=== PATIENT | male | born 1980 | race Caucasian/White ===

== ENCOUNTER 2016-10-08 14:58 | Emergency (ER) | payer BC ==
[2016-10-08] MEDS ORDERED: ACETAMINOPHEN TAB 500 MG TAB PO STA (15:30)
[2016-10-08] MEDS ORDERED: IBUPROFEN 600 MG TAB PO STA (15:30)
[2016-10-08] MEDS ORDERED: methylPREDNISolone SOD SUCCI 125 MG/2 ML VIAL IV STA (15:46)
--- NOTE | 2016-10-08 15:48 | ED ---
ENT HPI - General Chief complaint: ENT Stated complaint: Sore Throat Time Seen by Provider: 10/08/16 15:17 Source: patient, RN notes reviewed, old records reviewed Mode of arrival: ambulatory Limitations: no limitations - History of Present Illness Initial comments: 36-year-old male chief complaint of a sore throat for the past 5 days. Patient reports he's had fevers. He denies any recent Motrin Tylenol. He went to an urgent care who then told to come here because they are concerned of the amount of swelling of his tonsils. He reports he's had a muffled voice. He denies any difficulty breathing, he states it is difficult to swallow hard foods. He denies any history of sick contacts is aware of. Patient denies any recent fever, chills, shortness of breath, chest pain, back pain, abdominal pain, nausea vomiting, numbness or tingling, dysuria or hematuria, constipation or diarrhea, headaches or visual changes, or any other current symptoms - Related Data Previous Rx's Medication Instructions Recorded Amoxic-Pot Clav 875-125Mg 1 tab PO Q12HR #20 tablet 10/08/16 [Augmentin 875-125] Ibuprofen [Motrin] 600 mg PO Q8HR PRN #30 tab 10/08/16 methylPREDNISolone Dose Pack 4 mg PO DIRECTED #21 package 10/08/16 [Medrol Dose Pack] Allergies Allergy/AdvReac Type Severity Reaction Status Date / Time No Known Allergies Allergy Verified 10/08/16 17:04 Review of Systems ROS Statement: Those systems with pertinent positive or pertinent negative responses have been documented in the HPI. ROS Other: All systems not noted in ROS Statement are negative. Past Medical History Past Medical History: No Reported History History of Any Multi-Drug Resistant Organisms: None Reported Past Surgical History: No Surgical Hx Reported Past Psychological History: No Psychological Hx Reported Smoking Status: Current every day smoker Past Alcohol Use History: None Reported Past Drug Use History: None Reported General Exam - General Exam Comments Initial Comments: 36-year-old male. Patient is sitting comfortably. Does not appear to be in any acute distress. Limitations: no limitations General appearance: alert, in no apparent distress Head exam: Present: atraumatic, normocephalic, normal inspection Eye exam: Present: normal appearance, PERRL, EOMI. Absent: scleral icterus, conjunctival injection, periorbital swelling ENT exam: Present: normal exam, mucous membranes moist. Absent: normal oropharynx (Patient has severe enlargement of bilateral tonsils. Both tonsils are touching the uvula. Patient has a muffled voice.) Neck exam: Present: normal inspection, lymphadenopathy (He has bilateral tender cervical lymphadenopathy.). Absent: tenderness, meningismus Respiratory exam: Present: normal lung sounds bilaterally. Absent: respiratory distress, wheezes, rales, rhonchi, stridor Cardiovascular Exam: Present: regular rate, normal rhythm, normal heart sounds. Absent: systolic murmur, diastolic murmur, rubs, gallop, clicks GI/Abdominal exam: Present: soft, normal bowel sounds. Absent: distended, tenderness, guarding, rebound, rigid Extremities exam: Present: normal inspection, full ROM, normal capillary refill. Absent: tenderness, pedal edema, joint swelling, calf tenderness Back exam: Present: normal inspection Neurological exam: Present: alert, oriented X3, CN II-XII intact Psychiatric exam: Present: normal affect, normal mood Skin exam: Present: warm, dry, intact, normal color. Absent: rash Course Vital Signs 10/08/16 10/08/16 15:18 15:52 Temperature 101 F H 98.9 F Pulse Rate 122 H 122 H Respiratory 20 18 Rate Blood Pressure 138/92 131/89 O2 Sat by Pulse 96 95 Oximetry Medical Decision Making - Medical Decision Making 36-year-old male chief complaint of a sore throat for the past 5 days. Patient reports he's had fevers. He denies any recent Motrin Tylenol. He went to an urgent care who then told to come here because they are concerned of the amount of swelling of his tonsils. He reports he's had a muffled voice. He denies any difficulty breathing, he states it is difficult to swallow hard foods. Patient does have significant swelling over bilateral tonsils. He does have a significant a muffled voice. He has a fever 101 and tachycardia 120 coming to the emergency department. Patient was given Motrin and Tylenol. Given the extensive swelling and both of this tonsils are touching uvula further workup was obtained including IV fluids and lab work. Patient does have an elevated white count of 16.2. His rapid strep and heterophile are both negative. Patient received a CAT scan of the soft tissue of the neck with contrast. There is concern for a 2 cm abscess. There was significant oropharyngeal and narrow nasopharyngeal narrowing of the airway due to swelling. He did receive IV Solu-Medrol. Patient was reevaluated states he is feeling much better after some fluids and the medication. Patient was informed of the CAT scan results. Initially patient was apprehensive her staying for further treatment and just wanted to go home with antibiotic. Discussed with on-call ENT specialist Dr. Leger he will evaluate the patient. Dr. Leger date, and he drained the peritonsillar abscess. Approximately 4 mL of pus was came out of the tonsil. Patient reports that he is feeling much better at this time. Discussed the case with Dr. Leger. We will discharge the patient with a prescription for Augmentin and a Medrol Dosepak. Also given a prescription for Motrin for fever. Patient understands treatment plan will comply. Return parameters were discussed. - Lab Data Result diagrams: 10/08/16 16:07 10/08/16 16:07 Lab Results 10/08/16 10/08/16 10/08/16 Range/Units 16:07 16:07 16:07 WBC 16.2 H (3.8-10.6) k/uL RBC 4.85 (4.30-5.90) m/uL Hgb 13.8 (13.0-17.5) gm/dL Hct 40.5 (39.0-53.0) % MCV 83.4 (80.0-100.0) fL MCH 28.4 (25.0-35.0) pg MCHC 34.0 (31.0-37.0) g/dL RDW 13.7 (11.5-15.5) % Plt Count 285 (150-450) k/uL Neutrophils % 77 % Lymphocytes % 16 % Monocytes % 5 % Eosinophils % 1 % Basophils % 0 % Neutrophils # 12.4 H (1.3-7.7) k/uL Lymphocytes # 2.5 (1.0-4.8) k/uL Monocytes # 0.8 (0-1.0) k/uL Eosinophils # 0.2 (0-0.7) k/uL Basophils # 0.1 (0-0.2) k/uL Sodium 138 (137-145) mmol/L Potassium 3.9 (3.5-5.1) mmol/L Chloride 99 (98-107) mmol/L Carbon Dioxide 21 L (22-30) mmol/L Anion Gap 18 mmol/L BUN 17 (9-20) mg/dL Creatinine 0.76 (0.66-1.25) mg/dL Est GFR (MDRD) Af Amer >60 (>60 ml/min/1.73 sqM) Est GFR (MDRD) Non-Af >60 (>60 ml/min/1.73 sqM) Glucose 91 (74-99) mg/dL Plasma Lactic Acid Mikael (0.7-2.0) mmol/L Calcium 9.7 (8.4-10.2) mg/dL Total Bilirubin 1.0 (0.2-1.3) mg/dL AST 19 (17-59) U/L ALT 44 (21-72) U/L Alkaline Phosphatase 101 (38-126) U/L Total Protein 7.8 (6.3-8.2) g/dL Albumin 4.3 (3.5-5.0) g/dL Heterophile Antibody (Negative) Group A Strep Rapid Negative (Negative) 10/08/16 10/08/16 Range/Units 16:07 16:07 WBC (3.8-10.6) k/uL RBC (4.30-5.90) m/uL Hgb (13.0-17.5) gm/dL Hct (39.0-53.0) % MCV (80.0-100.0) fL MCH (25.0-35.0) pg MCHC (31.0-37.0) g/dL RDW (11.5-15.5) % Plt Count (150-450) k/uL Neutrophils % % Lymphocytes % % Monocytes % % Eosinophils % % Basophils % % Neutrophils # (1.3-7.7) k/uL Lymphocytes # (1.0-4.8) k/uL Monocytes # (0-1.0) k/uL Eosinophils # (0-0.7) k/uL Basophils # (0-0.2) k/uL Sodium (137-145) mmol/L Potassium (3.5-5.1) mmol/L Chloride (98-107) mmol/L Carbon Dioxide (22-30) mmol/L Anion Gap mmol/L BUN (9-20) mg/dL Creatinine (0.66-1.25) mg/dL Est GFR (MDRD) Af Amer (>60 ml/min/1.73 sqM) Est GFR (MDRD) Non-Af (>60 ml/min/1.73 sqM) Glucose (74-99) mg/dL Plasma Lactic Acid Mikael 1.2 (0.7-2.0) mmol/L Calcium (8.4-10.2) mg/dL Total Bilirubin (0.2-1.3) mg/dL AST (17-59) U/L ALT (21-72) U/L Alkaline Phosphatase (38-126) U/L Total Protein (6.3-8.2) g/dL Albumin (3.5-5.0) g/dL Heterophile Antibody Negative (Negative) Group A Strep Rapid (Negative) - Radiology Data Radiology results: report reviewed Hypertrophy Dowd ring with pencillike narrowing of both nasopharyngeal and oropharyngeal areas. Correlate with tonsillitis with findings highly suggest a 2.1 cm right peritonsillar abscess. also has cervical lymphadenopathy measuring up to 1.9 cm it. Most likely reactive. Disposition Clinical Impression: Peritonsillar abscess Disposition: HOME SELF-CARE Condition: Good Instructions: Peritonsillar Abscess (ED) Additional Instructions: Patient to take all medication. Patient is to follow up with Dr. Melendez if any further complication. Return to the emergency department if any alarming signs of symptoms occur. Prescriptions: Amoxic-Pot Clav 875-125Mg [Augmentin 875-125] 1 tab PO Q12HR #20 tablet Ibuprofen [Motrin] 600 mg PO Q8HR PRN #30 tab PRN Reason: Pain methylPREDNISolone Dose Pack [Medrol Dose Pack] 4 mg PO DIRECTED #21 package Referrals: Mikel Pugh MD [Primary Care Provider] - 1-2 days Maciel Alexander DO [Doctor of Osteopathic Medicine] - 1-2 days Time of Disposition: 18:25
[2016-10-08] MEDS ORDERED: RX INFO: IV CONTRAST WAS GIVEN 1 EACH MISC MISCELLANE PRN (15:49)
[2016-10-08 15:53] VITALS: RESP 18; TEMP 98.9
[2016-10-08 16:21] LABS: Basophils # (A) 0.1 k/uL (0-0.2); Basophils % (A) 0 %; CH 28.6; CHCM 34.4; Eosinophils # (A) 0.2 k/uL (0-0.7); Eosinophils % (A) 1 %; HCT 40.5 % (39.0-53.0); HDW 2.45; HGB 13.8 gm/dL (13.0-17.5); Luc # (Auto) 0.29; Luc % (Auto) 2; Lymphocytes # (A) 2.5 k/uL (1.0-4.8); Lymphocytes % (A) 16 %; MCH 28.4 pg (25.0-35.0); MCV 83.4 fL (80.0-100.0); Mean Platelet Volume 7.7; Monocytes # (A) 0.8 k/uL (0-1.0); Monocytes % (A) 5 %; Neutrophils # (A) 12.4 k/uL (1.3-7.7); Neutrophils % (A) 77 %; RBC 4.85 m/uL (4.30-5.90); RDW 13.7 % (11.5-15.5); WBC 16.2 k/uL (3.8-10.6); WBC (Perox) 14.84
[2016-10-08 16:33] LABS: ALT 44 U/L (21-72); AST 19 U/L (17-59); Alkaline Phosphatase 101 U/L (38-126); Anion Gap 18 mmol/L; Blood Urea Nitrogen 17 mg/dL (9-20); Calcium 9.7 mg/dL (8.4-10.2); Carbon Dioxide 21 mmol/L (22-30); Chloride 99 mmol/L (98-107); Glucose 91 mg/dL (74-99); Non-African American GFR(MDRD) >60 (>60 ml/min/1.73 sqM); Potassium 3.9 mmol/L (3.5-5.1); Sodium 138 mmol/L (137-145); Total Protein 7.8 g/dL (6.3-8.2)
[2016-10-08] MEDS ORDERED: SODIUM CHLORIDE 0.9% 1,000 ML IV ONE (16:36)
[2016-10-08] MEDS ORDERED: SODIUM CHLORIDE 0.9% 1,000 ML IV SCH (16:45)
--- NOTE | 2016-10-08 17:05 | CT ---
EXAMINATION TYPE: CT soft tissue neck w con DATE OF EXAM: 10/08/2016 COMPARISON: NONE HISTORY: 36-year-old male with swollen and sore throat TECHNIQUE: Contiguous axial scanning of the performed with IV Contrast, patient injected with 100 mL of Omnipaque 300. Delayed images through the kidneys were obtained. Coronal/sagittal reconstructions performed. CT DLP: 525.4 mGycm Automated exposure control for dose reduction was used. FINDINGS: Visualized intracranial structures, orbits and globes, and mastoid air cells appear within normal florez its. Mild mucosal thickening right maxillary sinus and ethmoid air cells. Polyp or mucosal retention cyst within the left sphenoid sinus. Hypertrophy of the adenoid tonsils causing pencillike narrowing of the nasopharyngeal airway. Marked bilateral palatine tonsillar hypertrophy with evidence of a 1.1 x 2.1 x 1.8 cm right-sided per itonsillar fluid collection. This results in pencillike narrowing of the oropharyngeal airway as well as the level of the palatine tonsils. Slight thickening extends into the right retropharyngeal soft tissues without discrete retropharyngeal fluid collection. Lingual tonsillar hypertrophy is also note d. Epiglottis within normal limits. The glottic and subglottic airway as well as the tracheal column and visualized upper lungs are clear. The thyroid, submandibular, and parotid glands appear satisfactory. Patient to cervical lymphadenopathy is present on both sides measuring up to 1.9 cm. Additional 7 mm space lymphadenopathy on the right measuring up to 1.2 cm. No osseous destructive process. IMPRESSION: 1. HYPERTROPHIED WALDEYER'S RING WITH PENCILLIKE NARROWING OF BOTH THE NASOPHARYNGEAL AND OROPHARYNGE AL AIRWAYS. 2. CORRELATE FOR TONSILLITIS WITH FINDINGS HIGHLY SUGGESTIVE OF A 2.1 CM RIGHT PARATONSILLAR ABSCESS. 3. UPPER CERVICAL LYMPHADENOPATHY MEASURING UP TO 1.9 CM IS LIKELY REACTIVE.
[2016-10-08] MEDS ORDERED: AMPICILLIN-SULBACTAM 3 GM in SODIUM CHLORIDE 0.9% 100 ML IVPB STA (17:27)
[2016-10-08] MEDS ORDERED: BENZOCAINE SPRAY 100 APPLIC/CAN MUCOUS MEM STA (17:45)
--- NOTE | 2016-10-08 18:28 | P.OP ---
Date of Procedure: 10/08/16 Preoperative Diagnosis: Right peritonsillar abscess Postoperative Diagnosis: same Procedure(s) Performed: Incision and drainage of right peritonsillar abscess Implants: Anesthesia: local Surgeon: Maciel Alexander Estimated Blood Loss (ml): 5 Pathology: none sent Condition: stable Disposition: PACU Indications for Procedure: This patient developed a sore throat last Tuesday or with associated fevers and chills. CAT scan evaluation shows a right peritonsillar abscess. I was called by the emergency room for drainage of this abscess. Patient has limited trismus. He has had problems with recurring tonsillitis in the past. He has extremely terrible dental care. Operative Findings: Large right peritonsillar abscess drained and purulence expressed Description of Procedure: This patient was placed in the sitting position. The throat was topically anesthetized with Hurricaine spray and then the right peritonsillar area was injected with lidocaine 1% with epinephrine 1 100,000. A 15 blade was placed into the abscess and a hemostat was used to widen it a large amount of purulence was expressed from the right peritonsillar area we removed approximately 3-4 mL of purulent foul-smelling material. A wide opening was obtained. Minimal bleeding was encountered.
--- NOTE | 2016-10-08 18:36 | P.GSCN ---
History of Present Illness Consult date: 10/08/16 Reason for Consult: -Severe sore throat Requesting physician: Wong Walls History of present illness: This is a 36-year-old white male who presented to the emergency room with a severe sore throat. He started having fevers and chills last Tuesday and then on Tuesday he developed throat pain. He presents with throat pain fevers chills and some mild trismus. Computed tomography scan evaluation shows a right peritonsillar abscess. Patient has terrible dental care. This pain is been present for the last 5 days located in the central throat with some radiation to the right describes the pain is mild to moderate with some associated mild trismus nothing seems to make it better or worse. Describes the pain as a dull aching pain. Review of Systems - Constitutional Reports anorexia - EENT Eyes: denies as per HPI Ears: deny: decreased hearing Ears, nose, mouth and throat: Reports ant. neck pain, Reports mouth pain, Reports nasal congestion - Cardiovascular Denies chest pain - Respiratory Denies congestion - Gastrointestinal Denies bloating - Genitourinary Denies dysuria - Musculoskeletal Denies frequent falls - Integumentary Denies brittle nails - Neurological Denies change in mentation - Psychiatric Denies anhedonia - Endocrine Denies excessive sweating - Allergic/Immunologic Denies allergic rhinitis Past Medical History Past Medical History: No Reported History History of Any Multi-Drug Resistant Organisms: None Reported Past Surgical History: No Surgical Hx Reported Past Psychological History: No Psychological Hx Reported Smoking Status: Current every day smoker Past Alcohol Use History: None Reported Past Drug Use History: None Reported Medications and Allergies Allergies Allergy/AdvReac Type Severity Reaction Status Date / Time No Known Allergies Allergy Verified 10/08/16 17:04 Surgical - Exam Osteopathic Statement: *. No significant issues noted on an osteopathic structural exam other than those noted in the History and Physical/Consult. Vital Signs Temp Pulse Resp BP Pulse Ox 101 F H 122 H 20 138/92 96 10/08/16 15:18 10/08/16 15:18 10/08/16 15:18 10/08/16 15:18 10/08/16 15:18 - General well developed, well nourished, no distress, moderate pain - Eyes PERRL, normal ocular movement - ENT Head is normocephalic the face is symmetric there's no abnormal movements. Ears auricles are well-formed canals are clear. Nose is patent. Mouth and throat demonstrates severe dental care is a bilateral tonsillar inflammation with purulence with the right side being bulging into the airway. No oral lesions are noted. Teeth are in terrible care severe caries are noted. no hearing loss - Neck trachea midline, no no lymphadectomy - Cardiovascular Rhythm: regular - Integumentary no rash - Neurologic normal coordination - Musculoskeletal normal gait - Psychiatric oriented to time, oriented to person, oriented to place, speech is normal Results - Labs 10/08/16 16:07 10/08/16 16:07 Abnormal Lab Results - Last 24 Hours (Table) 10/08/16 10/08/16 Range/Units 16:07 16:07 WBC 16.2 H (3.8-10.6) k/uL Neutrophils # 12.4 H (1.3-7.7) k/uL Carbon Dioxide 21 L (22-30) mmol/L Diabetes panel 10/08/16 Range/Units 16:07 Sodium 138 (137-145) mmol/L Potassium 3.9 (3.5-5.1) mmol/L Chloride 99 (98-107) mmol/L Carbon Dioxide 21 L (22-30) mmol/L BUN 17 (9-20) mg/dL Creatinine 0.76 (0.66-1.25) mg/dL Glucose 91 (74-99) mg/dL Calcium 9.7 (8.4-10.2) mg/dL AST 19 (17-59) U/L ALT 44 (21-72) U/L Alkaline Phosphatase 101 (38-126) U/L Total Protein 7.8 (6.3-8.2) g/dL Albumin 4.3 (3.5-5.0) g/dL Calcium panel 10/08/16 Range/Units 16:07 Calcium 9.7 (8.4-10.2) mg/dL Albumin 4.3 (3.5-5.0) g/dL Pituitary panel 10/08/16 Range/Units 16:07 Sodium 138 (137-145) mmol/L Potassium 3.9 (3.5-5.1) mmol/L Chloride 99 (98-107) mmol/L Carbon Dioxide 21 L (22-30) mmol/L BUN 17 (9-20) mg/dL Creatinine 0.76 (0.66-1.25) mg/dL Glucose 91 (74-99) mg/dL Calcium 9.7 (8.4-10.2) mg/dL Adrenal panel 10/08/16 Range/Units 16:07 Sodium 138 (137-145) mmol/L Potassium 3.9 (3.5-5.1) mmol/L Chloride 99 (98-107) mmol/L Carbon Dioxide 21 L (22-30) mmol/L BUN 17 (9-20) mg/dL Creatinine 0.76 (0.66-1.25) mg/dL Glucose 91 (74-99) mg/dL Calcium 9.7 (8.4-10.2) mg/dL Total Bilirubin 1.0 (0.2-1.3) mg/dL AST 19 (17-59) U/L ALT 44 (21-72) U/L Alkaline Phosphatase 101 (38-126) U/L Total Protein 7.8 (6.3-8.2) g/dL Albumin 4.3 (3.5-5.0) g/dL Assessment and Plan (1) Throat pain in adult Status: Acute (2) Trismus Status: Acute (3) Dysphagia Status: Acute (4) Gingivitis Status: Acute Plan: This patient had a incision and drainage of the right peritonsillar abscess with success. We will place him on Augmentin and pain medication and a sterile return in my office as needed. Contact information was given. Patient tolerated the incision and drainage well. Patient is to contact me if any changes should occur. Time with Patient: Greater than 30
[2016-10-08 19:14] VITALS: BP 132/86; PULSE 108
== END 2016-10-08 19:07 | disposition home or self-care (01) ==
LOC: EC 14:58
DX: J36 Peritonsillar abscess (principal); R00.0 Tachycardia, unspecified; F17.200 Nicotine dependence, unspecified, uncomplicated
CPT/HCPCS: 99284; 42700; 96365; 96375; 96361 ×7; 36415; 80053; 83605; 85025; 86308; 87040; 87081; 87430; 70491; J2930; Q9967; J0295